=== PATIENT | male | born 1965 ===

== ENCOUNTER 2017-02-14 12:31 | Emergency (ER) | payer MEDICAID ==
[2017-02-14 12:32] VITALS: BMI 27.0
[2017-02-14] MEDS ORDERED: Iohexol 240 (50 ml) PO STA (13:47)
--- NOTE | 2017-02-14 14:01 | C.PDOC ---
History Of Present Illness 51 y/o male presents to the ED with complaints of LUQ pain intermittently for the past few weeks, becoming more frequent. Pain is mostly when sitting up or with deep breaths. Pt saw PMD yesterday who told patient to come to ED for further evaluation. He states pain is a little better today, and better with standing or lying supine. He also reports 1 episode where he thought he had blood in his stool 3 weeks ago. Pt denies fever, chills, cough, URI symptoms or any other complaints. History of kidney stones. Time Seen by Provider: 02/14/17 13:18 Chief Complaint (Nursing): Abdominal Pain History Per: Patient History/Exam Limitations: no limitations Onset/Duration Of Symptoms: Days, Intermittent Episodes Current Symptoms Are (Timing): Worse Severity: Moderate Location Of Pain/Discomfort: LUQ Radiation Of Pain To:: None Quality Of Discomfort: "Pain" Associated Symptoms: denies: Fever, Chills, Vomiting, Diarrhea Exacerbating Factors: None Alleviating Factors: None Recent travel outside of the [place]: No Past Medical History Reviewed: Historical Data, Nursing Documentation, Vital Signs Vital Signs: Last Vital Signs Temp 98.7 F 02/14/17 12:42 Pulse 84 02/14/17 12:42 Resp 18 02/14/17 12:42 BP 145/90 02/14/17 12:42 Pulse Ox 98 02/14/17 14:05 - Medical History PMH: Fractures (left femur fx when 16 yrs old), HTN, Hypercholesterolemia, Kidney Stones Denies: Chronic Kidney Disease - [facility] Procedures CYSTOSCOPY NEC (06/29/14) INFLUENZA VACCINATION (06/29/14) REMOV URETERAL DRAIN (07/14/14) URETERAL CATHETERIZATION (06/29/14) VACCINATION NEC (06/29/14) Family History: States: Unknown Family Hx - Social History Hx Tobacco Use: No Hx Alcohol Use: No Hx Substance Use: No - Immunization History Hx Tetanus Toxoid Vaccination: No Hx Influenza Vaccination: No Hx Pneumococcal Vaccination: No Review Of Systems Except As Marked, All Systems Reviewed And Found Negative. Constitutional: Negative for: Fever, Chills ENT: Negative for: Nose Congestion Respiratory: Negative for: Cough Gastrointestinal: Positive for: Abdominal Pain. Negative for: Vomiting, Diarrhea Physical Exam - Physical Exam Appears: Non-toxic, No Acute Distress Skin: Warm, Dry, No Rash Head: Atraumatic, Normacephalic Neck: Normal, Normal ROM, Supple Chest: Symmetrical Cardiovascular: Rhythm Regular, No Murmur Respiratory: Normal Breath Sounds, No Rales, No Rhonchi, No Wheezing Gastrointestinal/Abdominal: Soft, Tenderness (LUQ mild tenderness, tenderness along left costal margin), No Guarding, No Rebound Back: Normal Inspection, No CVA Tenderness Extremity: Bilateral: Atraumatic Neurological/Psych: Oriented x3, Normal Speech ED Course And Treatment - Laboratory Results Result Diagrams: 02/14/17 14:20 02/14/17 14:20 Lab Interpretation: Normal O2 Sat by Pulse Oximetry: 98 (room air) Pulse Ox Interpretation: Normal - CT Scan/US CT adomen and pelvis Other Rad Studies (CT/US): Read By Radiologist, Radiology Report Reviewed CT/US Interpretation: Accession No. : [id number]. Patient Name / ID : LORNA ROCK / [id number]. Exam Date : 02/14/2017 16:24:17 ( Approved ). Study Comment : Sex / Age : M / 51Y. Creator : Pillo Bashir MD. Dictator : Pillo Bashir MD. Cashier : Institute Director : Pillo Bashir MD. Approver2 : Report Date : 02/14/2017 16:46:40. My Comment : . PROCEDURE: CT Abdomen and Pelvis with contrast. HISTORY: abd pain. COMPARISON: 06/29/2014. TECHNIQUE: Contrast dose: 100 cc of Omnipaque 300. Radiation dose: Total exam DLP = 1054 mGy-cm. This CT exam was performed using one or more of the following dose reduction techniques: Automated exposure control, adjustment of the mA and/or kV according to patient size, and/ or use of iterative reconstruction technique. FINDINGS: LOWER THORAX: Unremarkable. LIVER: Unremarkable. No gross lesion or ductal dilatation. GALLBLADDER AND BILE DUCTS: Cholelithiasis.. PANCREAS: Unremarkable. No gross lesion or ductal dilatation. SPLEEN: Unremarkable. ADRENALS: Unremarkable. No mass. KIDNEYS AND URETERS: There is a 3.2 centimeter mass in the lower pole the right kidney with heterogeneous enhancement which is larger when compared to the prior examination when it measured 2.3 centimeters. Renal cell carcinoma is not excluded. A cyst is noted in the mid to lower pole left kidney measuring 15 millimeters.. No hydronephrosis. No solid mass. 8 millimeter mid left renal calculus, nonobstructive. VASCULATURE: Unremarkable. No aortic aneurysm. BOWEL: Unremarkable. No obstruction. No gross mural thickening. APPENDIX: Normal appendix. PERITONEUM: Unremarkable. No free fluid. No free air. LYMPH NODES: Unremarkable. No enlarged lymph nodes. BLADDER: Unremarkable. REPRODUCTIVE: Unremarkable. BONES: No acute fracture. OTHER FINDINGS: None. IMPRESSION: 3.2 centimeter mass in the lower pole the right kidney with heterogeneous enhancement which is larger when compared to the prior examination when it measured 2.3 centimeters. Renal cell carcinoma is not excluded. 8 millimeter mid left renal calculus, nonobstructive. Cholelithiasis. Progress Note: Plan: CT abdomen, labs, UA, IV fluids Reevaluation Time: 16:58 Reassessment Condition: Improved Disposition - Disposition Referrals: Sue Conn MD [Medical Doctor] - Jaime Samuels Jr., MD [Staff Provider] - Disposition: HOME/ ROUTINE Disposition Time: 17:03 Condition: STABLE Additional Instructions: Follow up with Dr Conn and Dr Samuels for work up of renal mass. Instructions: Flank Pain (ED) - Clinical Impression Clinical Impression: Left flank pain, chronic, Renal mass, right - Scribe Statement The provider has reviewed the documentation as recorded by the Bradley Hodge Provider Attestation: All medical record entries made by the Bradley were at my direction and personally dictated by me. I have reviewed the chart and agree that the record accurately reflects my personal performance of the history, physical exam, medical decision making, and the department course for this patient. I have also personally directed, reviewed, and agree with the discharge instructions and disposition.
[2017-02-14] MEDS ORDERED: Iohexol 240 (50 ml) ONE (14:08)
[2017-02-14 14:28] LABS: BASO % 0.5 % (0.0-2.0); EOS # 0.1 K/uL (0.0-0.7); EOS % 0.8 % (0.0-4.0); HEMATOCRIT 45.5 % (35.0-51.0); LYMPH # 1.4 K/uL (1.0-4.3); LYMPH % 20.6 % (20.0-40.0); MEAN CELL VOLUME 88.1 fL (80.0-94.0); MEAN CORPUSCULAR HEMOGLOBIN 29.9 pg (27.0-31.0); MEAN CORPUSCULAR HGB CONC 33.9 g/dL (33.0-37.0); MEAN PLATELET VOLUME 9.6 fL (7.2-11.7); MONO # 0.5 K/uL (0.0-0.8); MONO % 6.6 % (0.0-10.0); NRBC % 0.1 % (0.0-2.0); RED CELL DISTRIBUTION WIDTH 13.9 % (11.5-14.5)
[2017-02-14 14:36] LABS: RBC URINE 2 /hpf (0-3); URINE BILIRUBIN NEGATIVE (NEGATIVE); URINE BLOOD NEGATIVE (NEGATIVE); URINE COLOR Yellow (YELLOW); URINE GLUCOSE (UA) NORMAL (Normal); URINE KETONE NEGATIVE (NEGATIVE); URINE LEUKOCYTE ESTERASE NEG Leu/uL (Negative); URINE PROTEIN NEGATIVE (NEGATIVE); URINE UROBILINOGEN NORMAL mg/dL (0.2-1.0); WBC URINE < 1 /hpf (0-5)
[2017-02-14 14:39] LABS: CHLORIDE 102 mmol/L (98-107); SODIUM 137 mmol/L (132-148)
[2017-02-14 14:41] LABS: AST/SGOT 27 U/L (17-59); BILIRUBIN,TOTAL 0.8 mg/dL (0.2-1.3); CARBON DIOXIDE 23 mmol/L (22-30); GFR AFRICAN-AMERICAN > 60
[2017-02-14 14:42] LABS: ALB/GLOB RATIO 1.3 (1.0-2.1); ALKALINE PHOSPHATASE 59 U/L (38-126); ALT/SGPT 34 U/L (21-72); BLOOD UREA NITROGEN 16 mg/dL (9-20); GLUCOSE,RANDOM 91 mg/dL (75-110)
[2017-02-14] MEDS ORDERED: Sodium Chloride 0.9% 1,000 ML IV ONE (14:44)
[2017-02-14] MEDS ORDERED: Iohexol 350mg/ml 100 ML ONE (16:12)
--- NOTE | 2017-02-14 16:48 | CT ---
PROCEDURE: CT Abdomen and Pelvis with contrast HISTORY: abd pain COMPARISON: 06/29/2014. TECHNIQUE: Contrast dose: 100 cc of Omnipaque 300 Radiation dose: Total exam DLP = 1054 mGy-cm. This CT exam was performed using one or more of the following dose reduction techniques: Automated exposure control, adjustment of the mA and/or kV according to patient size, and/or use of iterative reconstruction technique. FINDINGS: LOWER THORAX: Unremarkable. LIVER: Unremarkable. No gross lesion or ductal dilatation. GALLBLADDER AND BILE DUCTS: Cholelithiasis.. PANCREAS: Unremarkable. No gross lesion or ductal dilatation. SPLEEN: Unremarkable. ADRENALS: Unremarkable. No mass. KIDNEYS AND URETERS: There is a 3.2 centimeter mass in the lower pole the right kidney with heterogeneous enhancement which is larger when compared to the prior examination when it measured 2.3 centimeters. Renal cell carcinoma is not excluded. A cyst is noted in the mid to lower pole left kidney measuring 15 millimeters.. No hydronephrosis. No solid mass. 8 millimeter mid left renal calculus, nonobstructive. VASCULATURE: Unremarkable. No aortic aneurysm. BOWEL: Unremarkable. No obstruction. No gross mural thickening. APPENDIX: Normal appendix. PERITONEUM: Unremarkable. No free fluid. No free air. LYMPH NODES: Unremarkable. No enlarged lymph nodes. BLADDER: Unremarkable. REPRODUCTIVE: Unremarkable. BONES: No acute fracture. OTHER FINDINGS: None. IMPRESSION: 3.2 centimeter mass in the lower pole the right kidney with heterogeneous enhancement which is larger when compared to the prior examination when it measured 2.3 centimeters. Renal cell carcinoma is not excluded. 8 millimeter mid left renal calculus, nonobstructive. Cholelithiasis.
[2017-02-14 17:19] VITALS: BP 143/83; PULSE 63; RESP 20; TEMP 97.8; O2SAT 97
== END 2017-02-14 17:17 | disposition home or self-care (01) ==
LOC: C.ER 12:31
DX: N28.89 Other specified disorders of kidney and ureter (principal); R10.12 Left upper quadrant pain
CPT/HCPCS: 74177; 80053; 81001; 83690; 85025; 99284; Q9966; Q9967